=== PATIENT | female | born 1960 | race Caucasian/White ===

== ENCOUNTER → 2017-05-31 | Day surgery (SDC) | payer OTHER ==
[~2017-05-31] VITALS: Ht 167.6 cm; Wt 72.6 kg
[2017-05-31 13:36] VITALS: BP 144/85
[2017-05-31 14:03] VITALS: BP 144/85
[2017-05-31 14:04] VITALS: BP 140/77
--- NOTE | 2017-05-31 14:12 | Procedure Note ---
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 Lumbar radiculopathy symptoms. Post-procedure diagnosis: Same. Indications for procedure: Very pleasant 86-year-old white female the comes our procedural clinic today for intrathecal pain pump refill. Patient currently has intrathecal pain pump of morphine sulfate 15 mg/mL. The pump rate is 2.4 mg per day. Patient seems to be doing quite well with this current setting. Objective: Patient is awake alert oriented 3. In no acute distress. Flexion extension lumbar spine somewhat guarded secondary to pain. Deep tendon reflexes upper lower extremities normal. Motor strength upper and lower extremities normal. There is no gross sensory deficit. Gait is normal. Positive straight leg raise test at 30 degrees bilaterally. Procedure detail: Details of the procedure were explained to the patient. The patient taken to procedure room and placed in the supine position on the fluoroscopy table. The area over the pump was cleansed using chlorhexidine as a cleansing solution. The pump was accessed with ease using a 22-gauge needle from the refill kit. 3.2 mL of solution was withdrawn and discarded appropriately. The pump was instilled with 20 mL of morphine sulfate 20 mg/mL. The pump was interrogated. The rate was continued at 2.4 mg per day. Patient tolerated the procedure without difficulty. There were no complications. Plan and disposition: Patient was reevaluated 10 minutes post procedure. She is doing very well. She' ll return to see us in the pain clinic for further evaluation. at [id number]
[2017-05-31 14:29] VITALS: BP 144/85
== END ==
LOC: PM 13:30
DX: M51.16 Intervertebral disc disorders with radiculopathy, lumbar region (principal)